=== PATIENT | male | born 1960 | race Caucasian/White ===

== ENCOUNTER → 2022-07-24 | Outpatient (CLI) | payer OTHER ==
[~2022-07-24] MED LIST: 00186-0370-20 IH; LEVAQUIN 5500 MG/TA1 PO; MUCINEX 60600 MG/TA1 PO; NO HOME MEDICATIONS; PREDNISONE20 MG PO; TAMIFLU 75MG75 MG PO; VENTOLIN0.09 MG IH
== END ==
LOC: COL.RAD 07-21 08:15
DX: M25.552 Pain in left hip (principal)
CPT/HCPCS: J3301; Q9967